=== PATIENT | male | born 1985 | race African-American/Black ===

== ENCOUNTER 2017-04-12 10:45 | Emergency (ER) | payer OTHER ==
[~2017-04-12] VITALS: Ht 190.5 cm; Wt 84.0 kg
[2017-04-12] MEDS ORDERED: FLEXERIL PO (13:53)
[2017-04-12] MEDS ORDERED: NAPROSYN500 MG PO (13:53)
[2017-04-12 14:03] VITALS: BP 114/66
== END 2017-04-12 14:10 | disposition home or self-care (01) | DRG 563 ==
LOC: ED 10:45
DX: S46.911A Strain of unspecified muscle, fascia and tendon at shoulder and upper arm level, right arm, initial encounter (principal); W17.81XA Fall down embankment (hill), initial encounter; Y93.89 Activity, other specified; Y92.89 Other specified places as the place of occurrence of the external cause